=== PATIENT | female | born 1990 | race Two or more races ===

== ENCOUNTER 2019-09-18 07:41 | Inpatient (IN) ==
[2019-09-18] MEDS ORDERED: OXYTOCIN 30 UNITS/500 ML BAG IV PRN ×2 (07:50)
[2019-09-18] MEDS: LACTATED RINGER'S 1,000 ML IV PRN ×3 (08:07→18:15)
[2019-09-18 08:11] LABS: Hemoglobin 12.5 g/dL (12.0-16.0); Mean Corpuscular Hemoglobin 28.5 pg (25-34); Mean Corpuscular Volume 86.8 fL (80-100); Mean Platelet Volume 10.4 fL (7.4-10.4); Platelet Count 274 K/uL (130-400); RDW Coefficient of Variation 15.8 % (11.5-14.5); RDW Standard Deviation 49.9 fL (36.4-46.3); Red Blood Count 4.38 M/uL (4.2-5.4); White Blood Count 10.63 K/uL (4.8-10.8)
--- NOTE | 2019-09-18 08:16 | History & Physical Report ---
Date of Service September 18, 2019 Assessment & Plan (1) : Admit to L&D. IV, labs, pitocin. History of Present Illness Chief Complaint: IOL Primary Care Provider: NO PCP 29yo @ 41 09/30 for IOL. She rec'd ro bulb last night, it fell out around 3am. Irreg ctx. No leaking of fluid. No vaginal bleeding. + movement. Allergies Allergy/AdvReac Type Severity Reaction Status Date / Time Penicillins Allergy Mild Rash Verified 09/17/19 19:15 Home Medications Home Medications Medication Instructions Recorded Confirmed Type prenat.vits,bryanna,[id number] 1 tab PO DAILY 04/21/19 09/17/19 History Patient History Medical History (Updated 09/16/19 @ 10:20 by Ector Garay Jr, MD, FACOG) Abnormal biochemical finding on screening of mother History of varicella No significant past medical history Surgical History (Updated 04/26/19 @ 19:44 by Liz Keane) S/P wisdom tooth extraction Family History (Updated 04/26/19 @ 19:46 by Liz Keane) Grandmother (Maternal) No problems noted. Grandfather (Maternal) Diabetes Grandmother (Paternal) Diabetes Grandfather (Paternal) Diabetes Hypertension Father Hypertension Social History marital status: Feels Safe at Home: Yes Smoking Status: Never smoker Hx Alcohol Use: No Hx Substance Use: No Review of Systems All systems reviewed & are unremarkable except as noted in HPI & below Physical Exam Physical Exam: FHT cat 1 [place] Q 4 SVE 4/50/-3, posterior. Soft. Constitutional: WD/WN, vitals as above Respiratory: normal respiratory effort, lungs clear to auscultation no respiratory distress Cardiovascular: Rate/Rhythm: regular rate and regular rhythm Gastrointestinal (Abdomen): Inspection/Auscultation: abdomen normal to inspection Percussion/Palpation: abdomen soft; abdomen nontender Gravid. No s/s chorio or abruption. Skin: no rashes, warm and dry Psychiatric: A+Ox3, euthymic affect Results & Data Vital Signs (Past 12 Hours) Vital Signs Temp Pulse Resp BP 09/18/19 07:53 114 H 110/67 09/18/19 07:51 37.0 C 18
[2019-09-18 08:25] LABS: Mean Corpuscular Hgb Conc 32.9 g/dL (32-36)
--- NOTE | 2019-09-18 09:08 | Labor Progress Brief Note ---
Date of Service September 18, 2019 Subjective lying in bed, comfortable. Assessment & Plan (1) Post-dates : (2) Encounter for induction of labor: cont with pit, fhts categ 1, plan arom once has regular pattern. Physical Exam Constitutional: WD/WN, vitals as above Genitourinary: OB Exam Monitor Tracing: + external FHT monitor used, + external uterine monitor used (q2-5. pit at 1), + category I and + normal FHT variability Results & Data Vital Signs (Past 12 Hours) Vital Signs Temp Pulse Resp BP 09/18/19 08:51 97 H 111/71 09/18/19 07:53 114 H 110/67 09/18/19 07:51 98.6 F 18
--- NOTE | 2019-09-18 09:41 | Labor Progress Brief Note ---
Date of Service September 18, 2019 Subjective comfortable Assessment & Plan (1) Post-dates : (2) Encounter for induction of labor: c/w pit, will see how arom advancees labor pattern. fhts categ 1 Physical Exam Constitutional: WD/WN, vitals as above Genitourinary: Manual OB Exam: + cervical dilation (3-4), + cervical effacement 50%, + station -2 and + amniotic fluid (arom) clear OB Exam Monitor Tracing: + external FHT monitor used (140 mod variability), + external uterine monitor used (q2-4, pit at 5), + category I and + normal FHT variability Results & Data Vital Signs (Past 12 Hours) Vital Signs Temp Pulse Resp BP 09/18/19 09:19 18 09/18/19 08:51 97 H 111/71 09/18/19 08:49 18 09/18/19 08:35 114 H 110/67 09/18/19 07:53 114 H 110/67 09/18/19 07:51 98.6 F 18
--- NOTE | 2019-09-18 13:29 | Labor Progress Brief Note ---
Date of Service September 18, 2019 Subjective having more pain with ctx Assessment & Plan (1) Post-dates : (2) Encounter for induction of labor: no significant cx change. fhts categ 1. c/w pit. Physical Exam Constitutional: WD/WN, vitals as above Genitourinary: Manual OB Exam: + cervical dilation 4 cm, + cervical effacement 50%, + station -2 and + amniotic fluid meconium OB Exam Monitor Tracing: + external FHT monitor used (145 mod variability ), + external uterine monitor used (q3 pit at 19), + category I and + normal FHT variability Results & Data Vital Signs (Past 12 Hours) Vital Signs Temp Pulse Resp BP 09/18/19 13:21 98.6 F 20 09/18/19 13:12 96 H 125/77 09/18/19 12:40 18 09/18/19 11:51 86 100/59 L 09/18/19 10:50 82 109/70 09/18/19 10:49 98.6 F 16 09/18/19 10:40 18 09/18/19 10:19 18 09/18/19 10:01 18 09/18/19 09:50 94 H 121/81 09/18/19 09:19 18 09/18/19 08:51 97 H 111/71 09/18/19 08:49 18 09/18/19 08:35 114 H 110/67 09/18/19 07:53 114 H 110/67 09/18/19 07:51 98.6 F 18
[2019-09-18] MEDS ORDERED: fentaNYL citrate 100 MCG/2 ML VIAL ONE ×3 (14:18→20:50)
[2019-09-18] MEDS ORDERED: BUPIVACAINE 0.25% 30 ML VIAL ONE (14:19)
[2019-09-18] MEDS ORDERED: ePHEDrine sulfate 50 MG/ML AMP ONE (14:19)
[2019-09-18] MEDS ORDERED: fentaNYL 2MCG/ML ROPIV 1.25MG/ML 100 ML BAG EPI ONE (14:20)
[2019-09-18] MEDS ORDERED: DiphenhydrAMINE HCL 50 MG/ML VIAL IV PRN ×2 (14:26→20:21)
[2019-09-18] MEDS ORDERED: NALBUPHINE HCL INJ 10 MG/ML AMP IV PRN ×2 (14:26→20:21)
[2019-09-18] MEDS ORDERED: fentaNYL 2MCG/ML ROPIV 1.25MG/ML 100 ML BAG EPI PRN (14:26)
[2019-09-18] MEDS ORDERED: ePHEDrine sulfate 50 MG/ML AMP IV PRN ×2 (14:26→20:21)
[2019-09-18] MEDS ORDERED: NALOXONE HCL 1 MG in SODIUM CHLORIDE 0.9% 1000ML 1,000 ML IV PRN ×2 (14:26→20:21)
[2019-09-18] MEDS ORDERED: NALOXONE HCL 0.4 MG/1 ML VIAL/CARP IV PRN ×2 (14:26→20:21)
--- NOTE | 2019-09-18 14:58 | Anesthesiology Consultation ---
Date of Service September 18, 2019 Assessment & Plan Chart Review Chart Review: Acceptable Risk for Labor Epidural Consults Requested none History Height/Weight Height: 5 ft 1 in Weight: 69.127 kg Allergies Allergy/AdvReac Type Severity Reaction Status Date / Time Penicillins Allergy Mild Rash Verified 09/17/19 19:15 Medications Home Medications Medication Instructions Recorded Confirmed Last Taken prenat.vits,bryanna,zzt-[id number] 1 tab PO DAILY 04/21/19 09/18/19 09/17/19 21:30 Active Medications Generic Name Dose Route Start Last Admin Trade Name Freq PRN Reason Stop Dose Admin Lactated Ringer's 1,000 mls @ 125 mls/hr 09/18/19 07:50 09/18/19 14:14 Lr IV 09/20/19 07:49 125 mls/hr .Q8H PRN Infusion L&D Protocol Protocol Oxytocin 30 units in 500 mls @ 21 mls/hr 09/18/19 07:50 09/18/19 13:39 Pitocin IV 09/20/19 07:49 1.26 units/hr .[id number] PRN 21 mls/hr Labor Induction/Augmentation Titration Protocol 1.26 UNITS/HR Ropivacaine 100 ml 09/18/19 14:26 09/18/19 14:48 Epidural (L&D) EPI 09/19/19 14:25 10 ml PRN PRN Administration Pain R/T Labor Protocol Past Medical History Medical History Abnormal biochemical finding on screening of mother History of varicella No significant past medical history Past Family History Family History Grandmother (Maternal) No problems noted. Grandfather (Maternal) Diabetes Grandmother (Paternal) Diabetes Grandfather (Paternal) Diabetes Hypertension Father Hypertension Past Surgical History Surgical History S/P wisdom tooth extraction Social History Smoking Status: Never smoker Hx Alcohol Use: No Hx Substance Use: No Physical Exam Vital Signs Last Vital Signs Temp 37.0 C 09/18/19 13:21 Pulse 105 H 09/18/19 14:55 Resp 20 09/18/19 13:21 BP 114/65 09/18/19 14:55 Pulse Ox 100 09/18/19 14:53 Testing Laboratory Results 09/18/19 07:56
--- NOTE | 2019-09-18 15:06 | Labor Progress Brief Note ---
Date of Service September 18, 2019 Subjective comfortable with epidural Assessment & Plan (1) Post-dates : (2) Encounter for induction of labor: some cx change. c/w pit. fhts categ 1 Physical Exam Constitutional: WD/WN, vitals as above Genitourinary: Manual OB Exam: + cervical dilation 5 cm, + cervical effacement (75%) and + station -2 OB Exam Monitor Tracing: + external FHT monitor used (135 mod variability, reactive), + external uterine monitor used (q2-4), + category I and + normal FHT variability Results & Data Vital Signs (Past 12 Hours) Vital Signs Temp Pulse Resp BP Pulse Ox 09/18/19 15:03 130 H 100 09/18/19 15:01 109 H 117/68 09/18/19 14:58 117 H 105/63 100 09/18/19 14:55 105 H 114/65 09/18/19 14:53 118 H 100 09/18/19 14:52 108 H 115/66 09/18/19 14:49 108 H 118/63 09/18/19 14:48 108 H 100 09/18/19 14:46 120 H 119/67 92 09/18/19 14:44 103 H 116/58 L 09/18/19 14:43 115 H 100 09/18/19 14:42 103 H 122/72 09/18/19 14:38 111 H 100 09/18/19 14:34 131 H 114/77 09/18/19 14:33 111 H 100 09/18/19 14:27 98 H 83 L 09/18/19 13:41 94 H 105/74 09/18/19 13:21 98.6 F 20 09/18/19 13:12 96 H 125/77 09/18/19 12:40 18 09/18/19 11:51 86 100/59 L 09/18/19 10:50 82 109/70 09/18/19 10:49 98.6 F 16 09/18/19 10:40 18 09/18/19 10:19 18 09/18/19 10:01 18 09/18/19 09:50 94 H 121/81 09/18/19 09:19 18 09/18/19 08:51 97 H 111/71 09/18/19 08:49 18 09/18/19 08:35 114 H 110/67 09/18/19 07:53 114 H 110/67 09/18/19 07:51 98.6 F 18
--- NOTE | 2019-09-18 17:10 | Labor Progress Brief Note ---
Date of Service September 18, 2019 Subjective comfortable Assessment & Plan (1) Post-dates : (2) Encounter for induction of labor: will see about labor pattern with iupc. suspect variables. +scalp stim response. c/w pit and adjust if needed. Physical Exam Constitutional: WD/WN, vitals as above Genitourinary: Manual OB Exam: + cervical dilation 4 cm, + cervical effacement 90% and + station -2 OB Exam Monitor Tracing: + external FHT monitor used (150 mod variability, variable decels. +scalp stim response. ), + external uterine monitor used (q2), + intra-uterine pressure catheter used (placed), + category II and + normal FHT variability Results & Data Vital Signs (Past 12 Hours) Vital Signs Temp Pulse Resp BP Pulse Ox 09/18/19 17:03 110 H 100 09/18/19 16:58 90 100 09/18/19 16:53 96 H 91/50 L 100 09/18/19 16:48 97 H 100 09/18/19 16:43 99 H 100 09/18/19 16:39 105 H 93/51 L 09/18/19 16:38 102 H 100 09/18/19 16:33 106 H 100 09/18/19 16:28 128 H 100 09/18/19 16:24 104 H 94/50 L 09/18/19 16:23 91 H 100 09/18/19 16:18 107 H 100 09/18/19 16:17 98.8 F 18 09/18/19 16:13 122 H 100 09/18/19 16:08 122 H 108/68 100 09/18/19 16:03 101 H 100 09/18/19 15:58 103 H 100 09/18/19 15:54 104 H 112/68 09/18/19 15:53 106 H 100 09/18/19 15:48 100 H 100 09/18/19 15:43 103 H 100 09/18/19 15:40 108 H 112/59 L 09/18/19 15:38 108 H 100 09/18/19 15:35 18 09/18/19 15:33 110 H 100 09/18/19 15:28 98 H 100 09/18/19 15:25 99 H 128/65 09/18/19 15:23 105 H 100 09/18/19 15:18 106 H 100 09/18/19 15:13 113 H 100 09/18/19 15:08 119 H 100 09/18/19 15:07 112 H 110/61 09/18/19 15:05 20 09/18/19 15:04 131 H 114/59 L 09/18/19 15:03 130 H 100 09/18/19 15:01 109 H 117/68 09/18/19 14:58 117 H 105/63 100 09/18/19 14:55 105 H 114/65 09/18/19 14:53 118 H 100 09/18/19 14:52 108 H 115/66 09/18/19 14:49 108 H 118/63 09/18/19 14:48 108 H 100 09/18/19 14:46 120 H 119/67 92 09/18/19 14:44 103 H 116/58 L 09/18/19 14:43 115 H 100 09/18/19 14:42 103 H 122/72 09/18/19 14:38 111 H 100 09/18/19 14:34 131 H 114/77 09/18/19 14:33 111 H 100 09/18/19 14:27 98 H 83 L 09/18/19 13:41 94 H 105/74 09/18/19 13:21 98.6 F 20 09/18/19 13:12 96 H 125/77 09/18/19 12:40 18 09/18/19 11:51 86 100/59 L 09/18/19 10:50 82 109/70 09/18/19 10:49 98.6 F 16 09/18/19 10:40 18 09/18/19 10:19 18 09/18/19 10:01 18 09/18/19 09:50 94 H 121/81 09/18/19 09:19 18 09/18/19 08:51 97 H 111/71 09/18/19 08:49 18 09/18/19 08:35 114 H 110/67 09/18/19 07:53 114 H 110/67 09/18/19 07:51 98.6 F 18
[2019-09-18] MEDS ORDERED: ACETAMINOPHEN 500 MG TAB ONE (19:10)
[2019-09-18] MEDS ORDERED: ACETAMINOPHEN 500 MG TAB PO STA (19:13)
--- NOTE | 2019-09-18 19:20 | Labor Progress Brief Note ---
Date of Service September 18, 2019 Subjective feels pressure Assessment & Plan (1) Post-dates : (2) Encounter for induction of labor: begin 2nd stage. temp elevated, pulse elevated. pox normal. ivf bolus given. good urine output, ro removed for 2nd stage. will give tylenol, start clinda for presumed chorio. meconium stained fluid has been noted. Physical Exam Constitutional: WD/WN, vitals as above (pulse elevated. ) Genitourinary: Manual OB Exam: + cervical dilation 10 cm, + cervical effacement 100% and + station + 1 OB Exam Monitor Tracing: + external FHT monitor used (150 mod variability, variables. ), + external uterine monitor used (q2), + normal FHT variability and + variable decelerations Results & Data Vital Signs (Past 12 Hours) Vital Signs Temp Pulse Resp BP Pulse Ox 09/18/19 19:13 165 H 92 09/18/19 19:12 162 H 90 09/18/19 19:10 169 H 183/103 H 09/18/19 19:08 172 H 100 09/18/19 19:06 147 H 93 09/18/19 19:04 160 H 09/18/19 19:03 131 H 94 09/18/19 18:58 131 H 100 09/18/19 18:53 166 H 100 09/18/19 18:48 108 H 100 09/18/19 18:43 114 H 100 09/18/19 18:38 138 H 115/68 100 09/18/19 18:33 108 H 16 100 09/18/19 18:28 131 H 100 09/18/19 18:24 133 H 111/67 09/18/19 18:23 130 H 100 09/18/19 18:18 114 H 100 09/18/19 18:14 99.5 F 18 09/18/19 18:13 129 H 100 09/18/19 18:08 112 H 116/72 100 09/18/19 18:03 104 H 100 09/18/19 17:58 115 H 100 09/18/19 17:54 110 H 113/70 09/18/19 17:53 98 H 100 09/18/19 17:48 119 H 100 09/18/19 17:43 111 H 100 09/18/19 17:38 115 H 118/73 100 09/18/19 17:33 110 H 100 09/18/19 17:28 122 H 100 09/18/19 17:23 108 H 116/70 100 09/18/19 17:18 101 H 100 09/18/19 17:13 124 H 100 09/18/19 17:08 117 H 95/52 L 100 09/18/19 17:03 110 H 100 09/18/19 16:58 90 100 09/18/19 16:53 96 H 91/50 L 100 09/18/19 16:48 97 H 100 09/18/19 16:43 99 H 100 09/18/19 16:39 105 H 93/51 L 09/18/19 16:38 102 H 100 09/18/19 16:33 106 H 100 09/18/19 16:28 128 H 100 09/18/19 16:24 104 H 94/50 L 09/18/19 16:23 91 H 100 09/18/19 16:18 107 H 100 09/18/19 16:17 98.8 F 18 09/18/19 16:13 122 H 100 09/18/19 16:08 122 H 108/68 100 09/18/19 16:03 101 H 100 09/18/19 15:58 103 H 100 09/18/19 15:54 104 H 112/68 09/18/19 15:53 106 H 100 09/18/19 15:48 100 H 100 09/18/19 15:43 103 H 100 09/18/19 15:40 108 H 112/59 L 09/18/19 15:38 108 H 100 09/18/19 15:35 18 09/18/19 15:33 110 H 100 09/18/19 15:28 98 H 100 09/18/19 15:25 99 H 128/65 09/18/19 15:23 105 H 100 09/18/19 15:18 106 H 100 09/18/19 15:13 113 H 100 09/18/19 15:08 119 H 100 09/18/19 15:07 112 H 110/61 09/18/19 15:05 20 09/18/19 15:04 131 H 114/59 L 09/18/19 15:03 130 H 100 09/18/19 15:01 109 H 117/68 09/18/19 14:58 117 H 105/63 100 09/18/19 14:55 105 H 114/65 09/18/19 14:53 118 H 100 09/18/19 14:52 108 H 115/66 09/18/19 14:49 108 H 118/63 09/18/19 14:48 108 H 100 09/18/19 14:46 120 H 119/67 92 09/18/19 14:44 103 H 116/58 L 09/18/19 14:43 115 H 100 09/18/19 14:42 103 H 122/72 09/18/19 14:38 111 H 100 09/18/19 14:34 131 H 114/77 09/18/19 14:33 111 H 100 09/18/19 14:27 98 H 83 L 09/18/19 13:41 94 H 105/74 09/18/19 13:21 98.6 F 20 09/18/19 13:12 96 H 125/77 09/18/19 12:40 18 09/18/19 11:51 86 100/59 L 09/18/19 10:50 82 109/70 09/18/19 10:49 98.6 F 16 09/18/19 10:40 18 09/18/19 10:19 18 09/18/19 10:01 18 09/18/19 09:50 94 H 121/81 09/18/19 09:19 18 09/18/19 08:51 97 H 111/71 09/18/19 08:49 18 09/18/19 08:35 114 H 110/67 09/18/19 07:53 114 H 110/67 09/18/19 07:51 98.6 F 18
[2019-09-18] MEDS ORDERED: CLINDAMYCIN 900 MG in DEXTROSE 5% 50 ML IV SCH (19:30)
[2019-09-18] MEDS ORDERED: CEFAZOLIN 2000MG 2,000 MG/15 ML SYR IV SCH (19:30)
[2019-09-18] MEDS ORDERED: CARBOPROST TROMETHAMINE 250 MCG/ML AMPUL ONE (19:35)
[2019-09-18] MEDS ORDERED: PROPOFOL IV EMULSION 10 MG/ML 20 ML VIAL IV ONE (19:53)
[2019-09-18] MEDS ORDERED: SUCCINYLCHOLINE 100MG/5ML SYR ONE (19:53)
[2019-09-18] MEDS ORDERED: MoRPHine SULFATE PF 1 MG/ML 10 ML AMP/VIAL ONE (20:07)
[2019-09-18] MEDS ORDERED: ONDANSETRON INJ 2 MG/ML 2 ML VIAL ONE (20:07)
[2019-09-18] MEDS ORDERED: METOCLOPRAMIDE HCL 20 MG in SODIUM CHLORIDE 0.9% 50 ML IV PRN (20:21)
[2019-09-18] MEDS ORDERED: KETOROLAC 30 MG/ML VIAL IV PRN (20:21)
[2019-09-18] MEDS ORDERED: PROMETHAZINE HCL 25 MG in SODIUM CHLORIDE 0.9% 50 ML IV PRN (20:21)
[2019-09-18] MEDS ORDERED: MoRPHine SULFATE 2 MG/ML CARP IV PRN (20:21)
[2019-09-18] MEDS ORDERED: MoRPHine SULFATE PF 1 MG/ML 10 ML AMP/VIAL INT SPINAL ONE (20:21)
[2019-09-18] MEDS ORDERED: HYDROmorphone INJ 0.5 MG/0.5 ML SYR IV PRN (20:21)
[2019-09-18] MEDS ORDERED: NALOXONE HCL 0.08 MG in SYRINGE 1.8 ML IV PRN (20:21)
[2019-09-18] MEDS ORDERED: LACTATED RINGER'S 500 ML IV PRN (20:21)
[2019-09-18] MEDS ORDERED: ONDANSETRON INJ 2 MG/ML 2 ML VIAL IV PRN (20:21)
[2019-09-18] MEDS ORDERED: MEPERIDINE HCL 25 MG/ML CARP IV PRN (20:21)
[2019-09-18] MEDS ORDERED: OXYTOCIN 10 UNITS/ML VIAL ONE (20:21)
[2019-09-18] MEDS ORDERED: DC INTRASPINAL MORPHINE SCH (20:30)
[2019-09-18] MEDS ORDERED: NO NARCOTICS OR SEDATIVES SCH (20:30)
[2019-09-18] MEDS ORDERED: SODIUM CHLORIDE 0.9% 1000ML 1,000 ML IV SCH (20:30)
--- NOTE | 2019-09-18 20:36 | Post Operative Brief Note ---
PG Immediate Post Op with CF Date of Surgery September 18, 2019 Pre & Post Diagnosis Operation Date: 09/18/19 19:40 postdates, induction of labor, meconium stained fluid, non reassuring heart tones, remote from delivery I identified the patient and participated in the time-out.: No Procedure Operation Date: 09/18/19 19:40 <No data on this case meets the specified criteria> Stat Primary Low Transverse section Repair of vaginal laceration Surgeon Annabella Navas MD, FACOG [employer] Associate RN Estimated Blood Loss 600 Findings Consistent with Post-Op Diagnosis (viable male apgars 1,6,9 nuchal x 2, b howard cord, normal uterus tubes and ovaries bilaterally, periurethral tear repaired with 3-0 vicryl) Fluids 800 Specimens Specimen Description: cord blood and cord gases placenta Drains Benjamin Catheter Anesthesia Type General Complications none Disposition Accompanied Patient To Recovery: No Disposition: L&D
--- NOTE | 2019-09-18 20:54 | Operative Report ---
PG Post Operative Report Pre & Post Diagnosis Operation Date: 09/18/19 19:40 <No data on this case meets the specified criteria> 1. Postdates 2. Induction of labor 3. Meconium stained amniotic fluid 4. Presumed chorioamnionitis 5. Non reassuring heart tones 6. Remote from delivery I identified the patient and participated in the time-out.: No Procedure Operation Date: 09/18/19 19:40 Stat Primary Low Transverse Section Repair of periurethral laceration Surgeon Annabella Navas MD, FACOG [employer] RN Estimated Blood Loss 600 Findings Consistent with Post-Op Diagnosis (viable male apgars 1, 6, 9, double nuchal, body cord, normal uterus tubes and ovaries bilaterally. ) Fluids 800 Specimens cord blood, cord gases, placenta Drains ro Anesthesia Type General Complications none Disposition Accompanied Patient To Recovery: No Disposition: L&D Indications 29yo at 41wks baljeet presented to L&D for planned induction. She had a ro ripening balloon the night prior and was admitted today and given pitocin. An amniotomy was performed with return of meconium stained fluid. She received an epidural for anesthesia. An IUPC was placed to help guide the use of pitocin. She dilated to complete and began pushing. Large pumping blood vessel at hymenal ring was stiched due to excessive bleeding after 1% lidocaine anesthesia with 3- 0 vicryl. We began to discuss need for section due to variable decelerations remote from delivery but unfortunately decelerations became deep and a stat section was recommended. Her pushing was not effective enough to expect imminent delivery and without pushing deep variables to 50-60s were noted. Description of Procedure The patient was taken to the operating room and moved urgently to the OR table in the supine position with a leftward tilt. The abdomen was prepped quickly and she was draped in the usual fashion. After adequate general anesthesia was obtained the knife was used to create a Pfannensteil skin incision that was carried down to the underlying layer of fascia. The fascia was nicked in the midline and this opening was extended laterally using bluntly. The rectus muscles were dissected off the overlying fascia bluntly. The rectus muscles were bluntly in the midline. The peritoneal cavity was bluntly entered into. This opening was stretched. The bladder blade was placed. The knife was used to create a hysterotomy and this opening was stretched. The operators hand was placed through the hysterotomy and the bladder blade was removed. The head was elevated and flexed and with fundal pressure the head was delivered. Nuchal cord x 2 noted and body cord. The shoulders and body were rapidly delivered. The cord was clamped and cut and the infant was handed off to the awaiting nurses. Cord blood and segment of cord for gases were obtained. The placenta was manually expressed. The uterus was exteriorized and cleared of all clots and debris. Dilute IV Pitocin was begun. The uterine tone was improving. The hysterotomy was closed in a running interlocking fashion using 0 Vicryl followed by a second imbricating layer of 0 Vicryl. The uterine tone was not excellent and so IM hemabate to the uterine muscle was given. The hysterotomy was not hemostatic at the angles and so interrupted figure of eight sutures of 2-0 vicryl were placed for excellent hemostasis. The pelvis was irrigated. The uterus tone had improved and the uterus was returned to the abdomen. The gutters were cleared of all clots and debris. The hysterotomy was reinspected and noted to be hemostatic. The fascia was then closed in running fashion using 0 Vicryl. The subcutaneous fat was copiously irrigated and reapproximated using 2-0 chromic. The skin was closed in a subcuticular fashion using 4-0 Vicryl. At this point the procedure was terminated. A KUB xray was performed due to no full count. The vaginal tissues were reinspected due to repair of hymenal ring bleeding and that area was hemostatic but periurethral tear noted and reapproximated with 3-0 vicryl for excellent hemostasis. The ro catheter placed in the room prior to going to the OR was in the vagina and so a new ro catheter was easily placed under sterile conditions. The patient was awoken from her anesthesia and transferred to the recovery room in stable condition. All sponge, lap and needle counts are correct x2. I attest to the content of the Intraoperative Record and any orders documented therein. Any exceptions are noted below.
[2019-09-18] MEDS ORDERED: DIPHTHERIA/TETANUS/PERTUSSIS 0.5 ML SYR/VIAL IM ONE (21:02)
[2019-09-18] MEDS ORDERED: MAGNESIUM HYDROXIDE SUSP 30 ML UDC PO PRN (21:02)
[2019-09-18] MEDS ORDERED: BENZOCAINE 20% AER SPR 82.5 GM CAN EXT PRN (21:02)
[2019-09-18] MEDS ORDERED: SUPERCREAM 0.870% 15 GM JAR EXT PRN (21:02)
[2019-09-18] MEDS ORDERED: HYDROCORTISONE ACETATE 25 MG SUPP PR PRN (21:02)
--- NOTE | 2019-09-18 21:05 | XRay Report ---
KUB CLINICAL HISTORY: Postoperative examination. Unable to perform instrument count. FINDINGS: 2 AP supine abdominal radiographs are obtained. No prior studies are available for comparis on at the time of dictation. There is a nonobstructed abdominal bowel gas pattern noting moderate con stipation. Mildly distended and gas-filled loops of small bowel may represent ileus. A large soft tis sandra density structure in the pelvis likely represents the post gravid uterus. Bilateral renal calculi are suspected. The bony structures appear intact. No radiodense foreign body is identified to sugges t retained surgical implement. IMPRESSION: 1. There is no radiographic evidence of retained surgical implement. 2. A large soft tissue density in the pelvis likely represents the post gravid uterus. 3. There is no evidence of bowel obstruction. Mildly distended gas-filled loops of small bowel may co rrespond to ileus. 4. Suspect bilateral nephrolithiasis. Electronically signed by: Eric Adame M.D. 09/18/2019 9:04 PM
[2019-09-18 21:06] LABS: Base Excess Cord Arterial Bld -12.9 mEq/L (-9-1.8); CO2 Cord Arterial Blood 74 mmHg (39.1-73.5); HCO3 Cord Arterial Blood 19 mmol/L (19.7-28.5); pH Cord Arterial Blood 7.03 (7.1-7.38)
[2019-09-18 21:09] LABS: Oxygen Sat Cord Arterial Blood < 60.0 % (<60)
[2019-09-18 21:10] LABS: Base Excess Cord Venous Blood -12.3 mEq/L (-7.7-1.9); Cord Venous Blood HCO3 18 mmol/L (18.4-26.8); Cord Venous Blood PCO2 60 mmHg (30.4-57.2); Cord Venous Blood PO2 14 mmHg (14.1-43.3); O2 Saturation Cord Venous Bld < 60.0 % (<68); PO2 Cord Arterial Blood < 10.0 % (4.1-31.7)
--- NOTE | 2019-09-18 21:11 | Anesthesia Procedure Note ---
Date of Service September 18, 2019 Anesthesia Post Epidural Note Vital Signs Vital Signs: Temp Pulse Resp BP Pulse Ox 36.3 C L 117 H 18 148/65 H 100 09/18/19 20:45 09/18/19 21:10 09/18/19 21:05 09/18/19 21:04 09/18/19 21:10 Pain Intensity Abdomen: Pain Intensity: 0 Notes Mental Status: alert / awake / arousable Nausea / Vomiting: adequately controlled Pain: adequately controlled Airway Patency, RR, SpO2: stable & adequate BP & HR: stable & adequate Hydration State: stable & adequate Neuraxial Anesthesia: was administered and sensory block is resolving Anesthetic Complications: no major complications apparent and Pt Satisfied with anesthetic care Epidural: Removed without complications and With tip intact
[2019-09-18] MEDS ORDERED: LACTATED RINGER'S 1,000 ML IV SCH (21:15)
[2019-09-18] MEDS ORDERED: CARBOPROST TROMETHAMINE 250 MCG/ML AMPUL IM ONE (21:23)
[2019-09-18] MEDS: OXYTOCIN 20 UNITS in LACTATED RINGER'S 1,000 ML IV SCH (21:35)
--- NOTE | 2019-09-18 22:22 | Anesthesiology Progress Note ---
Date of Service September 18, 2019 Anesthesia Post Procedure Vital Signs Vital Signs: Temp Pulse Resp BP Pulse Ox 09/18/19 22:20 127 H 99 09/18/19 22:15 130 H 98 09/18/19 22:14 118 H 133/74 09/18/19 22:10 126 H 97 09/18/19 22:05 127 H 100 09/18/19 22:04 118 H 133/69 09/18/19 22:00 113 H 100 09/18/19 21:55 126 H 100 09/18/19 21:54 107 H 116/67 09/18/19 21:50 117 H 100 09/18/19 21:45 116 H 18 100 09/18/19 21:44 114 H 113/57 L 94 09/18/19 21:40 107 H 100 09/18/19 21:35 114 H 162/65 H 100 09/18/19 21:34 112 H 94 09/18/19 21:30 118 H 90 09/18/19 21:27 111 H 93 09/18/19 21:25 37.3 C 108 H 18 100 09/18/19 21:24 105 H 136/62 09/18/19 21:20 98 H 100 09/18/19 21:15 107 H 18 100 09/18/19 21:14 100 H 137/62 09/18/19 21:10 117 H 100 09/18/19 21:05 110 H 18 100 09/18/19 21:04 110 H 148/65 H 09/18/19 21:00 111 H 100 09/18/19 20:55 115 H 18 100 09/18/19 20:54 107 H 139/55 L 09/18/19 20:51 136 H 144/64 H 93 09/18/19 20:50 131 H 95 09/18/19 20:45 36.3 C L 132 H 18 97 09/18/19 19:40 181 H 89 L 09/18/19 19:38 176 H 100 09/18/19 19:33 185 H 95 09/18/19 19:28 161 H 79 L 09/18/19 19:26 169 H 74 L 09/18/19 19:23 165 H 96 09/18/19 19:22 34 L 183/120 H 09/18/19 19:20 184 H 83 L 09/18/19 19:18 178 H 100 09/18/19 19:13 165 H 92 09/18/19 19:12 162 H 90 09/18/19 19:10 169 H 183/103 H 09/18/19 19:08 172 H 100 09/18/19 19:06 147 H 93 09/18/19 19:05 38.0 C H 09/18/19 19:04 160 H 09/18/19 19:03 131 H 94 09/18/19 19:00 20 09/18/19 18:58 131 H 100 09/18/19 18:53 166 H 100 09/18/19 18:48 108 H 100 09/18/19 18:43 114 H 100 09/18/19 18:38 138 H 115/68 100 09/18/19 18:33 108 H 16 100 09/18/19 18:28 131 H 100 09/18/19 18:24 133 H 111/67 09/18/19 18:23 130 H 100 09/18/19 18:18 114 H 100 09/18/19 18:14 37.5 C 18 09/18/19 18:13 129 H 100 09/18/19 18:08 112 H 116/72 100 09/18/19 18:03 104 H 100 09/18/19 17:58 115 H 100 09/18/19 17:54 110 H 113/70 09/18/19 17:53 98 H 100 09/18/19 17:48 119 H 100 09/18/19 17:43 111 H 100 09/18/19 17:38 115 H 118/73 100 09/18/19 17:33 110 H 100 09/18/19 17:28 122 H 100 09/18/19 17:23 108 H 116/70 100 09/18/19 17:18 101 H 100 09/18/19 17:13 124 H 100 09/18/19 17:08 117 H 95/52 L 100 09/18/19 17:03 110 H 100 09/18/19 16:58 90 100 09/18/19 16:53 96 H 91/50 L 100 09/18/19 16:48 97 H 100 09/18/19 16:43 99 H 100 09/18/19 16:39 105 H 93/51 L 09/18/19 16:38 102 H 100 09/18/19 16:33 106 H 100 09/18/19 16:28 128 H 100 09/18/19 16:24 104 H 94/50 L 09/18/19 16:23 91 H 100 09/18/19 16:18 107 H 100 09/18/19 16:17 37.1 C 18 09/18/19 16:13 122 H 100 09/18/19 16:08 122 H 108/68 100 09/18/19 16:03 101 H 100 09/18/19 15:58 103 H 100 09/18/19 15:54 104 H 112/68 09/18/19 15:53 106 H 100 09/18/19 15:48 100 H 100 09/18/19 15:43 103 H 100 09/18/19 15:40 108 H 112/59 L 09/18/19 15:38 108 H 100 09/18/19 15:35 18 09/18/19 15:33 110 H 100 09/18/19 15:28 98 H 100 09/18/19 15:25 99 H 128/65 09/18/19 15:23 105 H 100 09/18/19 15:18 106 H 100 09/18/19 15:13 113 H 100 09/18/19 15:08 119 H 100 09/18/19 15:07 112 H 110/61 09/18/19 15:05 20 09/18/19 15:04 131 H 114/59 L 09/18/19 15:03 130 H 100 09/18/19 15:01 109 H 117/68 09/18/19 14:58 117 H 105/63 100 09/18/19 14:55 105 H 114/65 09/18/19 14:53 118 H 100 09/18/19 14:52 108 H 115/66 09/18/19 14:49 108 H 118/63 09/18/19 14:48 108 H 100 09/18/19 14:46 120 H 119/67 92 09/18/19 14:44 103 H 116/58 L 09/18/19 14:43 115 H 100 09/18/19 14:42 103 H 122/72 09/18/19 14:38 111 H 100 09/18/19 14:34 131 H 114/77 09/18/19 14:33 111 H 100 09/18/19 14:27 98 H 83 L 09/18/19 13:41 94 H 105/74 09/18/19 13:21 37.0 C 20 09/18/19 13:12 96 H 125/77 09/18/19 12:40 18 09/18/19 11:51 86 100/59 L 09/18/19 10:50 82 109/70 09/18/19 10:49 37.0 C 16 09/18/19 10:40 18 09/18/19 10:19 18 09/18/19 10:01 18 09/18/19 09:50 94 H 121/81 09/18/19 09:19 18 09/18/19 08:51 97 H 111/71 09/18/19 08:49 18 09/18/19 08:35 114 H 110/67 09/18/19 07:53 114 H 110/67 09/18/19 07:51 37.0 C 18 Pain Intensity Abdomen: Pain Intensity: 3 Transfer of Care Handoff Completed per policy Notes Mental Status: alert / awake / arousable and participated in evaluation Patient Amnestic to Procedure: Yes Nausea / Vomiting: adequately controlled Pain: adequately controlled Airway Patency, RR, SpO2: stable & adequate BP & HR: stable & adequate Hydration State: stable & adequate Anesthetic Complications: no major complications apparent
[2019-09-19] MEDS: CEFAZOLIN 2000MG 2,000 MG/15 ML SYR IV SCH ×2 (02:57→11:05)
[2019-09-19] MEDS: OXYTOCIN 20 UNITS in LACTATED RINGER'S 1,000 ML IV SCH (06:48)
[2019-09-19 07:03] LABS: Basophils # (auto) 0.01 K/uL (0-0.2); Basophils % (auto) 0.1 %; Hemoglobin 10.8 g/dL (12.0-16.0); Immature Granulocytes # (auto) 0.08 K/uL (0.00-0.02); Immature Granulocytes % (auto) 0.4 %; Lymphocytes % (auto) 6.3 %; Mean Corpuscular Hemoglobin 28.3 pg (25-34); Mean Corpuscular Hgb Conc 32.7 g/dL (32-36); Mean Corpuscular Volume 86.4 fL (80-100); Mean Platelet Volume 10.7 fL (7.4-10.4); Monocytes # (auto) 1.26 K/uL (0.11-0.59); Monocytes % (auto) 6.6 %; Neutrophils # (auto) 16.45 K/uL (1.4-6.5); Neutrophils % (auto) 86.6 %; Platelet Count 228 K/uL (130-400); RDW Coefficient of Variation 15.8 % (11.5-14.5); RDW Standard Deviation 49.7 fL (36.4-46.3); Red Blood Count 3.82 M/uL (4.2-5.4)
[2019-09-19] MEDS: DOCUSATE SODIUM 100 MG CAP PO SCH ×2 (07:56→21:40)
[2019-09-19] MEDS: SIMETHICONE 80 MG CHEW PO SCH ×4 (07:57→21:40)
[2019-09-19] MEDS ORDERED: FERROUS SULFATE 325 MG TAB PO SCH (08:00)
--- NOTE | 2019-09-19 08:51 | Obstetrical Progress Note ---
Date of Service September 19, 2019 Assessment & Plan (1) Post-dates : (2) Encounter for induction of labor: (3) H/O section: discussed circumstances with c/s with patient. await am hgb. tachycardia continues but denies cp, sob, o2 sat 1005 on RA. seems to be hydrated well, good Uo overnight. getting 3 doses of kefzol due to stat c/s. will cont to monitor. discussed with pt and spouse need to tell us about any concerning sx. she feels well and denies complaints this am. Subjective Voiding: ro catheter in place Passing Gas:: No Diet Tolerance:: clear liquids Lochia:: Small Feeding Type:: breast feeding no pain issues Physical Exam Constitutional WD/WN, vitals as above Respiratory normal respiratory effort, lungs clear to auscultation Cardiovascular Rate/Rhythm: regular rhythm and + tachycardic Gastrointestinal (Abdomen) Inspection/Auscultation: normal bowel sounds and + abdominal surgical incision (dressing c/d/i) Percussion/Palpation: abdomen soft; abdomen nontender ff 2 down. nt. Musculoskeletal nt calves Neurologic grossly normal Psychiatric A+Ox3, euthymic affect Results & Data Vital Signs (Past 12 Hours) Vital Signs Temp Pulse Pulse Resp BP BP Pulse Ox 09/19/19 07:00 18 100 09/19/19 06:00 18 100 09/19/19 05:00 18 100 09/19/19 04:00 18 99 09/19/19 03:15 100.0 F H 124 H 18 102/62 100 09/19/19 03:00 18 100 09/19/19 02:00 18 100 09/19/19 00:49 18 99 09/18/19 23:55 98.1 F 116 H 18 107/70 100 09/18/19 22:45 99.3 F 128 H 18 98 09/18/19 22:44 123 H 111/73 09/18/19 22:40 118 H 99 09/18/19 22:35 122 H 99 09/18/19 22:34 121 H 111/69 09/18/19 22:30 113 H 100 09/18/19 22:28 122 H 114/70 09/18/19 22:25 121 H 99 09/18/19 22:20 127 H 99 09/18/19 22:15 130 H 18 98 09/18/19 22:14 118 H 133/74 09/18/19 22:10 126 H 97 09/18/19 22:05 127 H 100 09/18/19 22:04 118 H 133/69 09/18/19 22:00 113 H 100 09/18/19 21:55 126 H 100 09/18/19 21:54 107 H 116/67 09/18/19 21:50 117 H 100 09/18/19 21:45 99.3 F 116 H 18 100 09/18/19 21:44 114 H 113/57 L 94 09/18/19 21:40 107 H 100 09/18/19 21:35 114 H 162/65 H 100 09/18/19 21:34 112 H 94 09/18/19 21:30 118 H 90 09/18/19 21:27 111 H 93 09/18/19 21:25 99.1 F 108 H 18 100 09/18/19 21:24 105 H 136/62 09/18/19 21:20 98 H 100 09/18/19 21:15 107 H 18 100 09/18/19 21:14 100 H 137/62 09/18/19 21:10 117 H 100 09/18/19 21:05 110 H 18 100 09/18/19 21:04 110 H 148/65 H 09/18/19 21:00 111 H 100 09/18/19 20:55 115 H 18 100 09/18/19 20:54 107 H 139/55 L 09/18/19 20:51 136 H 144/64 H 93 09/18/19 20:50 131 H 95
[2019-09-19] MEDS ORDERED: PROMETHAZINE HCL 25 MG in SODIUM CHLORIDE 0.9% 50 ML IV PRN (14:21)
[2019-09-19] MEDS ORDERED: DiphenhydrAMINE HCL 50 MG/ML VIAL IV PRN (14:21)
[2019-09-19] MEDS ORDERED: ONDANSETRON INJ 2 MG/ML 2 ML VIAL IV PRN (14:21)
[2019-09-19] MEDS ORDERED: KETOROLAC 30 MG/ML VIAL IV PRN (14:21)
[2019-09-19] MEDS: IBUPROFEN 600 MG TAB PO PRN ×2 (15:38→23:47)
[2019-09-19] MEDS: OXYCODONE/ACETAMINOPHEN 5mg/325mg TAB PO PRN ×2 (15:38→23:48)
[2019-09-19] MEDS ORDERED: CONSULT PHARMACY STA (17:33)
[2019-09-19] MEDS: CLINDAMYCIN 900 MG in DEXTROSE 5% 50 ML IV SCH (18:18)
[2019-09-19] MEDS ORDERED: GENTAMICIN CONSULT ACTIVE PRN (18:23)
--- NOTE | 2019-09-19 18:32 | Obstetrical Progress Note ---
Date of Service September 19, 2019 Assessment & Plan (1) Chorioamnionitis, delivered, current hospitalization: -The patient had an elevated temperature prior to delivery -She was empirically given the diagnosis of chorioamnionitis -The patient received cephalosporin prior to her section and 2 postoperative doses were ordered -The patient has received 2 out of the 3 doses of the cephalosporin but continues to have elevated temperature -We will change antibiotics to gentamicin and clindamycin -Gentamicin dosing per pharmacy consult -Discussed the change in antibiotics with the patient -We will continue to monitor for a clinical response Subjective Called to evaluate patient for persistently elevated temperature Physical Exam Cardiovascular Extremities: no calf tenderness Gastrointestinal (Abdomen) Dressing dry and intact, appropriate postoperative tenderness Results & Data Vital Signs (Past 12 Hours) Vital Signs Temp Pulse Resp BP Pulse Ox 09/19/19 15:25 100.9 F H 116 H 20 110/72 97 09/19/19 13:38 20 98 09/19/19 12:14 102.9 F H 127 H 20 113/76 100 09/19/19 11:04 18 98 09/19/19 10:45 20 99 09/19/19 09:36 18 98 09/19/19 08:21 18 99 09/19/19 07:58 99.9 F H 123 H 18 105/66 100 09/19/19 07:09 18 100 09/19/19 07:00 18 100
[2019-09-19 18:57] LABS: Creatinine Clr Calc Pharmacy 134.2 ml/min; Est GFR (African American) 148.1; Est GFR (Non-African American) 127.8
[2019-09-19] MEDS: GENTAMICIN SULFATE 350 MG in DEXTROSE 5% 100 ML IV SCH (19:41)
--- NOTE | 2019-09-19 20:51 | Pharmacy Report ---
Pharmacy Abx Initial Consult - Date of Service September 19, 2019 - Pharmacy Dosing Scope Date of Consult: 09/19/19 Consultation requested by: Dr. Garay Pharmacy is consulted to initiate Gentamicin IV dosing therapy, order appropriate labs and adjust drug dose/frequency. - Subjective The patient is a 29 year old F admitted on 09/18/19 07:43. - Objective Height: 5 ft 1 in Weight: 69.127 kg Vital Signs (Past 12hrs): Vital Signs Temp Pulse Resp BP Pulse Ox 09/19/19 15:25 38.3 C H 116 H 20 110/72 97 09/19/19 13:38 20 98 09/19/19 12:14 39.4 C H 127 H 20 113/76 100 09/19/19 11:04 18 98 09/19/19 10:45 20 99 09/19/19 09:36 18 98 Lab Results (24hrs): Laboratory Tests (24 Hours) 09/19/19 09/19/19 18:26 06:25 WBC 19.00 H Neut # (Auto) 16.45 H Creatinine 0.56 L Est Cr Clr Drug Dosing 134.2 - Risk Factors for Resistance * None - Assessment & Plan Assessment 29 year old F underwent section on 09/18/19 Developed a fever post-op continued into today with 24 hr Tmax of 39.4 degrees celsius WBCs elevated from yesterday 10,600 --> 19,000 Received 1 dose of ancef 2 g pre-op on 09/18 followed by 2 doses post-op but fevers continued Patient empirically being treated for chorioamnionitis Day #1 of antimicrobial therapy Plan Gentamicin and Clindamycin for treatment of Chorioamnionitis Gentamicin * Patient meets criteria for extended-interval aminoglycoside dosing per the U rban-Edilberto nomogram due to patient being * Dose: 350 mg (5 mg/kg) IV every 24 hours * Dosage based on actual body weight based on status * Level will be ordered if therapy to extend past 72 hours Clindamycin * 900 mg IV every 8 hours for severe infection * Dose appropriate based on renal function Pharmacy will continue to follow and will adjust dose/frequency as necessary. Thank you.
[2019-09-20] MEDS: CLINDAMYCIN 900 MG in DEXTROSE 5% 50 ML IV SCH ×3 (02:22→17:50)
[2019-09-20 06:40] LABS: Basophils # (auto) 0.01 K/uL (0-0.2); Basophils % (auto) 0.1 %; Eosinophils # (auto) 0.02 K/uL (0-0.5); Eosinophils % (auto) 0.1 %; Hematocrit (blood only) 32.3 % (37-47); Hemoglobin 10.7 g/dL (12.0-16.0); Immature Granulocytes # (auto) 0.08 K/uL (0.00-0.02); Immature Granulocytes % (auto) 0.5 %; Lymphocytes # (auto) 1.72 K/uL (1.2-3.4); Lymphocytes % (auto) 10.1 %; Mean Corpuscular Hemoglobin 28.5 pg (25-34); Mean Corpuscular Hgb Conc 33.1 g/dL (32-36); Mean Corpuscular Volume 86.1 fL (80-100); Mean Platelet Volume 10.4 fL (7.4-10.4); Monocytes # (auto) 1.23 K/uL (0.11-0.59); Monocytes % (auto) 7.2 %; Neutrophils # (auto) 13.98 K/uL (1.4-6.5); Platelet Count 211 K/uL (130-400); RDW Coefficient of Variation 16.2 % (11.5-14.5); RDW Standard Deviation 50.7 fL (36.4-46.3); Red Blood Count 3.75 M/uL (4.2-5.4); White Blood Count 17.04 K/uL (4.8-10.8)
[2019-09-20] MEDS: IBUPROFEN 600 MG TAB PO PRN ×3 (06:43→20:04)
[2019-09-20] MEDS: OXYCODONE/ACETAMINOPHEN 5mg/325mg TAB PO PRN ×3 (06:44→20:06)
[2019-09-20 07:08] LABS: Creatinine Clr Calc Pharmacy 125.2 ml/min; Est GFR (African American) 144.8; Est GFR (Non-African American) 124.9
--- NOTE | 2019-09-20 08:21 | Obstetrical Progress Note ---
Date of Service September 20, 2019 Assessment & Plan (1) Encounter for care and examination after delivery: POD2 s/p stat LTCS. 1) post care - encourage ambulation today - thick liquid diet. Can progress after passage of gas - continue supportive care - incision healing well 2) Chorioamnionitis - gent+ clinda - monitor for re-spiking fevers - can d/c abx after 48hours afebrile (2) Chorioamnionitis, delivered, current hospitalization: (3) H/O section: Supervising Physician Co-Signing Physician Notes Resident Physician Supervision Note: I was present with Dr. Friedman during the history and exam. I discussed the case with the resident and agree with the findings and plan as documented in the note. Any exceptions or clarifications are listed here: Patient defervesced with antibiotic change. Will continue for at least 24 more hours. Ambulation encouraged. Documented By: Ector Garay Jr, MD, FACOG Subjective doing well this AM. Wants to get up and walk around today to get bowels moving. Review of Systems Constitutional: + fatigue; no fever and no chills Respiratory: no cough and no dyspnea Cardiovascular: no chest pain, no syncope, no edema and no calf pain Gastrointestinal: no abdominal pain, no nausea, no vomiting, no cramping, no constipation and no diarrhea/loose stools Genitourinary: no dysuria and no difficulty urinating Neurologic: no headache(s) Physical Exam Constitutional: well developed and well nourished Respiratory: normal respiratory effort; no respiratory distress, no labored breathing and no cough Auscultation: no crackles, no rales, no rhonchi and no wheezes Cardiovascular: Rate/Rhythm: regular rate and regular rhythm Heart Sounds: no gallop, no murmur and no cardiac rub Extremities: no pedal edema Gastrointestinal (Abdomen): Inspection/Auscultation: + abdomen distended and normal bowel sounds Percussion/Palpation: + abdomen tender and abdomen soft; no guarding Skin: C/S incision appears to be healing well. Intact, no fluid or bloody leakage. Mildly tender to palpation around scar. Genitourinary: Uterus firm, palpable at umbilicus, some tenderness to palpation. Results & Data Vital Signs (Past 12 Hours) Vital Signs Temp Pulse Resp BP Pulse Ox 09/20/19 03:25 36.4 C L 78 16 96/52 L 98 09/20/19 00:35 36.6 C 98 H 16 99/66 L 97 09/20/19 09/20/19 09/19/19 Range/Units 06:32 06:32 18:26 WBC 17.04 H (4.8-10.8) K/uL RBC 3.75 L (4.2-5.4) M/uL Hgb 10.7 L (12.0-16.0) g/dL Hct 32.3 L (37-47) % MCV 86.1 (80-100) fL MCH 28.5 (25-34) pg MCHC 33.1 (32-36) g/dL RDW Std Deviation 50.7 H (36.4-46.3) fL RDW Coeff of Annel 16.2 H (11.5-14.5) % Plt Count 211 (130-400) K/uL MPV 10.4 (7.4-10.4) fL Immature Gran % (Auto) 0.5 % Neut % (Auto) 82.0 % Lymph % (Auto) 10.1 % [place] % (Auto) 7.2 % Eos % (Auto) 0.1 % Baso % (Auto) 0.1 % Immature Gran # (Auto) 0.08 H (0.00-0.02) K/uL Neut # (Auto) 13.98 H (1.4-6.5) K/uL Lymph # (Auto) 1.72 (1.2-3.4) K/uL [place] # (Auto) 1.23 H (0.11-0.59) K/uL Eos # (Auto) 0.02 (0-0.5) K/uL Baso # (Auto) 0.01 (0-0.2) K/uL Creatinine 0.60 0.56 L (0.6-1.2) mg/dl Est Cr Clr Drug Dosing 125.2 134.2 ml/min Est GFR ( Amer) 144.8 148.1 Est GFR (Non-Af Amer) 124.9 127.8 Resident Activity Tracking Resident Involvement: Resident Care Provided Care Provided: Adult Hospital Medicine and OB Delivery
[2019-09-20] MEDS: SIMETHICONE 80 MG CHEW PO SCH ×4 (08:25→21:54)
[2019-09-20] MEDS: DOCUSATE SODIUM 100 MG CAP PO SCH ×2 (08:25→21:54)
[2019-09-20] MEDS: GENTAMICIN SULFATE 350 MG in DEXTROSE 5% 100 ML IV SCH (19:12)
[2019-09-21] MEDS: IBUPROFEN 600 MG TAB PO PRN ×2 (00:37→10:10)
[2019-09-21] MEDS: OXYCODONE/ACETAMINOPHEN 5mg/325mg TAB PO PRN (00:37)
[2019-09-21] MEDS: CLINDAMYCIN 900 MG in DEXTROSE 5% 50 ML IV SCH ×2 (02:17→10:10)
[2019-09-21 07:07] LABS: Creatinine Clr Calc Pharmacy 134.2 ml/min; Est GFR (African American) 148.1; Est GFR (Non-African American) 127.8
[2019-09-21] MEDS: DOCUSATE SODIUM 100 MG CAP PO SCH (07:53)
[2019-09-21] MEDS: SIMETHICONE 80 MG CHEW PO SCH ×2 (07:53→13:43)
--- NOTE | 2019-09-21 08:32 | Obstetrical Progress Note ---
Date of Service September 21, 2019 Assessment & Plan (1) Encounter for care and examination after delivery: Recovering well. Afeb x24hr. Not often and having some difficulty knowing how to respond to baby crying; nurses assisting with likely transition to bottle today. (2) Chorioamnionitis, delivered, current hospitalization: -The patient had an elevated temperature prior to delivery -She was empirically given the diagnosis of chorioamnionitis -The patient received cephalosporin prior to her section and 2 postoperative doses were ordered -The patient has received 2 out of the 3 doses of the cephalosporin but continues to have elevated temperature -We will change antibiotics to gentamicin and clindamycin -Gentamicin dosing per pharmacy consult -Discussed the change in antibiotics with the patient 09/21 Patient is now afebrile x 36 hours. Offered d/c home and patient is considering; will stop antibiotics when she goes home either today or tomorrow. (3) H/O section: discussed circumstances with c/s with patient. await am hgb. tachycardia continues but denies cp, sob, o2 sat 1005 on RA. seems to be hydrated well, good Uo overnight. getting 3 doses of kefzol due to stat c/s. will cont to monitor. discussed with pt and spouse need to tell us about any concerning sx. she feels well and denies complaints this am. Subjective Ambulation: ambulating normally Voiding: no voiding problems Passing Gas:: Yes Diet Tolerance:: regular diet Lochia:: Small Feeding Type:: breast feeding (with supplementation) Physical Exam Constitutional WD/WN, vitals as above Eyes PERRL, conjunctivae normal, anicteric sclerae Neck normal visual inspection Respiratory normal respiratory effort and able to speak in complete sentences; no respiratory distress and no labored breathing Cardiovascular Rate/Rhythm: regular rate and regular rhythm Extremities: no edema Chest (Breasts) Chest: normal inspection of chest Gastrointestinal (Abdomen) Inspection/Auscultation: abdomen normal to inspection and + abdominal surgical incision (c/d/i) Soft, postgravid Psychiatric A+Ox3, euthymic affect Genitourinary OB Exam Abdomen: + fundal height Fundus: + firm and + relation to umbilicus (fundus just below umbilicus); not tender Results & Data Vital Signs (Past 12 Hours) Vital Signs Temp Pulse Resp BP 09/21/19 00:25 98.6 F 96 H 18 137/77
== END 2019-09-21 15:30 | disposition home or self-care (01) | DRG 786 ==
LOC: 4S1 07:43 → 4S2 23:30